=== PATIENT | female | born 1935 | race Caucasian/White ===

== ENCOUNTER 2018-03-07 09:34 | Day surgery (SDC) | payer MEDICARE ==
[2018-03-07] VITALS (254 sets, daily range): BP systolic 118–166; BP diastolic 51–82; PULSE 48–60; TEMP 97–98.4; O2SAT 72–100
[~2018-03-07] VITALS: Ht 157.5 cm; Wt 62.0 kg
[2018-03-07] MEDS ORDERED: NORVASC 10MG10 MG PO (10:59)
[2018-03-07] MEDS ORDERED: COENZYME Q-10100 M1 PO (11:00)
[2018-03-07] MEDS ORDERED: TOPROL XL 50MG50 MG PO (11:01)
[2018-03-07] MEDS ORDERED: GLUCOPHAGE500 MG/TAB PO (11:01)
[2018-03-07] MEDS ORDERED: MULTI VITAMINS1 TAB PO (11:02)
[2018-03-07] MEDS ORDERED: CRESTOR 10MG10 MG PO (11:03)
[2018-03-07 11:40] LABS: INR 0.9 (0.8-3.0); PROTHROMBIN TIME 10.5 SECONDS (9.7-12.8)
[2018-03-07 11:45] LABS: BASO # 0.1 (0.0-0.2); BASO % 0.6 % (0.0-2.0); EOS # 0.3 (0.0-0.7); EOS % 2.8 % (0-4.0); HEMATOCRIT 38.7 % (37.0-47.0); HEMOGLOBIN 12.2 g/dl (12.5-16.0); LYMPH # 1.4 (1.2-3.4); LYMPH % 13.2 % (20.0-51.0); MEAN CELL VOLUME 91 fl (80.0-100.0); MEAN CORPUSCULAR HEMOGLOBIN 29 pg (27.0-31.0); MEAN CORPUSCULAR HGB CONC 32 g/dl (33.0-37.0); MEAN PLATELET VOLUME 10.7 fl (7.4-10.4); MONO # 0.6 (0.1-0.6); MONO % 6.1 % (1.7-9.3); PLATELET COUNT 320 K/mm3 (130-400); RED BLOOD COUNT 4.26 M/mm3 (4.10-5.30); REDCELL DISTRIBUTION WIDTH-CV 13.5 % (11.5-14.5)
[2018-03-07 11:50] LABS: CALCIUM 9.2 mg/dL (8.4-10.2); CREATININE, serum 1.12 mg/dL (0.52-1.25); POTASSIUM 4.4 mmol/L (3.4-5.0)
[2018-03-08] VITALS (20 sets, daily range): BP systolic 119–170; BP diastolic 52–76; PULSE 50–68; TEMP 97.2–97.3; O2SAT 95–98
[2018-03-08 05:22] LABS: BASO % 0.4 % (0.0-2.0); EOS # 0.2 (0.0-0.7); EOS % 2.5 % (0-4.0); GRAN # 7.1 (1.4-6.5); GRAN % 75.1 % (42.2-75.2); HEMOGLOBIN 11.3 g/dl (12.5-16.0); LYMPH # 1.2 (1.2-3.4); LYMPH % 12.8 % (20.0-51.0); MEAN CELL VOLUME 89 fl (80.0-100.0); MEAN CORPUSCULAR HEMOGLOBIN 28 pg (27.0-31.0); MEAN CORPUSCULAR HGB CONC 32 g/dl (33.0-37.0); MEAN PLATELET VOLUME 9.8 fl (7.4-10.4); MONO # 0.8 (0.1-0.6); MONO % 8.4 % (1.7-9.3); PLATELET COUNT 276 K/mm3 (130-400); REDCELL DISTRIBUTION WIDTH-CV 13.6 % (11.5-14.5)
[2018-03-08 05:25] LABS: CREATININE, serum 0.93 mg/dL (0.52-1.25); POTASSIUM 4.1 mmol/L (3.4-5.0)
[2018-03-08 05:27] LABS: HEMATOCRIT 35.6 % (37.0-47.0)
[2018-03-08] MEDS ORDERED: BRILINTA90 MG PO (09:31)
[2018-03-08] MEDS ORDERED: ZESTRIL 10MG10 MG PO ×3 (09:32→11:57)
[2018-03-08] MEDS ORDERED: ASPIRIN 81M81 MG/TA2 PO (09:33)
== END 2018-03-08 17:00 | disposition home or self-care (01) ==
LOC: COL.CAR 09:34 → ICU 12:53 → COL.CAR 03-08 17:00
PROVIDERS: Internal Medicine Cardiovascular Disease
DX: R94.39 Abnormal result of other cardiovascular function study (principal); I25.10 Atherosclerotic heart disease of native coronary artery without angina pectoris; I10 Essential (primary) hypertension; E78.5 Hyperlipidemia, unspecified; I25.2 Old myocardial infarction; Z79.899 Other long term (current) drug therapy
CPT/HCPCS: OP; C9600; J0583; J2250; J3010; Q9967